=== PATIENT | female | born 1950 | race Caucasian/White ===

== ENCOUNTER 2018-11-20 19:36 | Inpatient (IN) ==
[2018-11-20 21:04] LABS: BASO# 0.03 X1000 (0.0-0.2); BASO% 0.1 % (0.0-0.8); EOS# 0.06 X1000 (0.0-0.7); EOS% 0.3 % (0.0-10.0); HEMOGLOBIN 13.3 g/dL (12.0-16.0); IMM GRAN# 0.08 X1000 (0.0-0.04); IMM GRAN% 0.4 % (0.0-0.5); LYMPH# 12.14 X1000 (1.2-3.4); LYMPH% 55.4 % (20.5-51.1); MCH 26.2 PG (27-31); MCHC 31.7 g/dL (33-37); MCV 82.7 FL (81-99); MONO# 1.01 X1000 (0.11-0.59); MONO% 4.6 % (1.7-9.3); NEUT# 8.59 X1000 (1.4-6.5); NEUT% 39.2 % (42.2-75.2); PLT 276 X1000 (130-400); RBC 5.08 XMIL (4.2-5.4); RDW 15.5 % (11.5-14.5); WBC 21.91 X1000 (4.8-10.8)
--- NOTE | 2018-11-20 21:37 | Diag Imaging Result Doc PS360 ---
EXAM: CHEST-PORTABLE INDICATION: cp TECHNIQUE: One view COMPARISON: 09/22/2016 FINDINGS: There is evidence of prior granulomatous disease, stable. The lungs are grossly clear. There is no discrete pleural fluid collection or pneumothorax. The cardiomediastinal silhouette and central vasculature are grossly unremarkable. IMPRESSION: No evidence of acute pathology by plain radiograph. Electronically signed by Moi Katz 11/20/2018 9:34 PM
[2018-11-20 21:48] LABS: AGAP 13; ALB/GLOB RATIO 1.2; ALBUMIN 4.1 g/dL (3.5-5.0); ALKALINE PHOSPHATASE 151 U/L (32-104); BUN 19 mg/dL (8-22); CALCIUM 8.7 mg/dL (8.8-10.2); CHLORIDE 99 mmol/L (98-107); COSMO 294; CREATININE 0.6 mg/dL (0.5-0.9); ESTIMATED GFR > 60; GOT 12 U/L (10-30); GPT 9 U/L (10-36); POTASSIUM 4.5 mmol/L (3.5-5.1); SODIUM 137 mmol/L (136-145); TCO2 25 mmol/L (25-35); TOTAL BILIRUBIN 0.25 mg/dL (0.20-1.00); TOTAL PROTEIN 7.5 g/dL (6.3-8.3)
[2018-11-20 21:49] LABS: GLUCOSE 414 mg/dL (70-104)
[2018-11-20] MEDS ORDERED: LOVENOX 1 MG/KG SUBQ ONE (21:58)
[2018-11-20] MEDS ORDERED: HUMULIN R SUBQ ONE (22:01)
--- NOTE | 2018-11-20 22:06 | PROVIDER DOCUMENTATION ---
This chart was entered by Mell Katz Scribe, acting as scribe for Mika Lyman MD. HPI-Chest Pain - General Chief Complaint: B/P Problems Stated Complaint: B/P FLUCTUATING, PULSE RACING, CHEST/NECK PAIN Time Seen by Provider: 11/20/18 19:56 Source: patient Allergies/Adverse Reactions: Patient Allergies Allergy/AdvReac Type Severity Reaction Status Date / Time No Known Allergies Allergy Verified 09/22/16 12:44 Home Medications: Home Medication List Medication Instructions Recorded Confirmed Last Taken Type Atenolol 50 mg PO QAM 02/20/15 09/22/16 09/22/16 08:00 History Furosemide [Lasix] 40 mg PO DAILY 02/20/15 09/22/16 09/22/16 08:00 History Insulin NPH Hum/Reg Insulin Hm 30 unit SQ QPM 02/20/15 09/22/16 09/21/16 20:00 History [Humulin 70-30 Vial] Insulin NPH Hum/Reg Insulin Hm 50 unit SQ QAM 02/20/15 09/22/16 09/22/16 08:30 History [Humulin 70-30 Vial] Tramadol [Ultram] 50 mg PO Q6H PRN PRN #15 tablet 03/18/15 09/22/16 Unknown Rx Aspirin 81 mg PO DAILY 07/10/15 09/22/16 09/22/16 08:00 History Omeprazole 20 mg PO DAILY 07/10/15 09/22/16 09/22/16 08:00 History Sennosides/Docusate Sodium [Stool 1 each PO DAILY 07/10/15 09/22/16 Unknown History Softener Tablet] Atorvastatin Calcium [Lipitor] 40 mg PO HS 09/22/16 09/22/16 09/21/16 20:00 History Clopidogrel [Plavix] 75 mg PO DAILY 09/22/16 09/22/16 09/22/16 08:00 History Cyclobenzaprine [Flexeril] 10 mg PO TID PRN #15 tablet 09/22/16 Unknown Rx - History of Present Illness-CP Nature of Presenting Problem: 67 yof presents to er w/co cp becoming more frequent and progressively worse. pt states pain is mid sternal and radiates into jaw. pt also has nausea and sweating associated with symptoms. pt takes plavix. pt has hx of coronary dx, had cath and 1 stent in 2015, colon cancer and had resection. pt currently has CLL. pt denies nvd, fever and headache. pt has many abd sx scars. Location: reports: substernal Chest Pain Radiation: reports: jaw Quality of Pain: reports: aching Severity in ED: mild Timing: still present Aspirin Treatment Today: unknown Review of Systems - Adult - REVIEW OF SYSTEMS - ADULT Constitutional: reports: no symptoms reported. denies: fever Eyes: reports: no symptoms reported Ears, Nose, Mouth & Throat: reports: no symptoms reported Cardiovascular: reports: see HPI, chest pain (substernal). denies: edema, heart murmur, orthopnea Respiratory: reports: no symptoms reported. denies: shortness of breath Gastrointestinal: reports: see HPI, nausea. denies: abdominal pain, diarrhea, vomiting Genitourinary: reports: no symptoms reported Musculoskeletal: reports: no symptoms reported Integumentary: reports: no symptoms reported Neurological: reports: no symptoms reported Psychiatric: reports: no symptoms reported Endocrine: reports: see HPI, excessive sweating Hematologic/Lymphatic: reports: no symptoms reported Allergic/Immunologic: reports: no symptoms reported All Other Systems: Reviewed and Negative Past History - Adult - PAST MEDICAL HISTORY-ADULT Review of Records: reports: Old Records Reviewed, Nursing Assessment Review, Medications Reviewed, Social history reviewed & non-contributory. Major Childhood Illnesses: reports: history unknown Cardiovascular: reports: hyperlipidemia Respiratory: reports: denies history Gastrointestinal: reports: cancer (hx colon cancer s/p resection surgery), other (gallstones ) Obstetrical/Gynecological: reports: denies history Genitourinary: reports: other (s/p hysterectomy) Musculoskeletal: reports: denies history Neurological: reports: denies history Psychiatric: reports: denies history Endocrine/Immune: reports: Diabetes (insulin dependent) Other Conditions: reports: other (leukemia- WBC ususally 30K per patient) - PRIOR SURGERIES/PROCEDURES Surgical/Procedure History: reports: colonoscopy, hysterectomy - PRIOR HOSPITALIZATIONS Prior Hospitalizations: reports: for similar symptoms - IMMUNIZATION STATUS Childhood Immunizations: See Nurse Assessment Flu Vaccine: See Nurse Assessment - FAMILY HISTORY Family History: reviewed, not pertinent - SOCIAL HISTORY Smoking: other (former smoker) Substance Use: none/never Alcohol Use Frequency: never Physical Exam-General - PHYSICAL EXAM-ADULT Initial Vital Signs Reviewed: Yes - CONSTITUTIONAL General Appearance: alert, mild distress - EYES Eyes: PERRL/EOMI, pink conjunctivae - HEAD, EARS, NOSE, MOUTH & THROAT HENMT: normocephalic/atraumatic, moist mucous membranes, normal ENT inspection - NECK Neck: non-tender, full range of motion, supple, normal inspection - RESPIRATORY Respiratory: chest non-tender, lungs clear, normal breath sounds - CARDIOVASCULAR Cardiovascular: normal peripheral pulses, no edema, no gallop, no JVD, no murmur , tachycardia. 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 II-XII nml as tested, grossly normal, no motor/sensory deficits - PSYCHIATRIC Psych/Mental Status: normal mood/affect, normal thought content, normal thought process, oriented x 3 Progress - PLAN OF CARE/RESULTS Progress/Plan/Lab Results: Vital Signs - 8 hr 11/20/18 19:42 11/20/18 19:59 11/20/18 20:01 Temperature 97.9 F Pulse Rate 105 H 89 94 H Respiratory Rate 15 21 20 Blood Pressure 157/79 150/66 O2 Sat by Pulse Oximetry 96 93 L 92 L 11/20/18 20:02 11/20/18 20:10 11/20/18 20:17 Temperature Pulse Rate 99 H 97 H 92 H Respiratory Rate 21 24 17 Blood Pressure 141/66 154/74 O2 Sat by Pulse Oximetry 94 L 92 L 93 L 11/20/18 20:20 11/20/18 20:30 11/20/18 20:32 Temperature Pulse Rate 93 H 101 H 94 H Respiratory Rate 16 20 19 Blood Pressure 165/84 O2 Sat by Pulse Oximetry 95 96 94 L 11/20/18 20:40 11/20/18 20:47 11/20/18 20:50 Temperature Pulse Rate 88 94 H 91 H Respiratory Rate 22 23 24 Blood Pressure 146/73 O2 Sat by Pulse Oximetry 92 L 90 L 91 L Laboratory Results - last 24 hr 11/20/18 11/20/18 11/20/18 20:49 20:49 20:49 WBC 21.91 H RBC 5.08 Hgb 13.3 Hct 42.0 MCV 82.7 MCH 26.2 L MCHC 31.7 L RDW Std Deviation 15.5 H Plt Count 276 MPV 10.0 Immature Gran % (Auto) 0.4 Neut % (Auto) 39.2 L Lymph % (Auto) 55.4 H Cecil % (Auto) 4.6 Eos % (Auto) 0.3 Baso % (Auto) 0.1 Immature Gran # (Auto) 0.08 H Neut # (Auto) 8.59 H Lymph # (Auto) 12.14 H Cecil # (Auto) 1.01 H Eos # (Auto) 0.06 Baso # (Auto) 0.03 Sodium 137 Potassium 4.5 Chloride 99 Carbon Dioxide 25 Anion Gap 13 BUN 19 Creatinine 0.6 Estimated GFR/1.73 m2 > 60 BUN/Creatinine Ratio 32 Glucose 414 H* Calculated Osmolality 294 Calcium 8.7 L Total Bilirubin 0.25 AST 12 ALT 9 L Alkaline Phosphatase 151 H Troponin T < 0.010 Total Protein 7.5 Albumin 4.1 Globulin 3.4 Albumin/Globulin Ratio 1.2 Orders Category Date Time Status CHEST-PORTABLE [RAD] Stat Exams 11/20/18 20:39 Completed CBC WITH ELECTRONIC DIFF [HEME] Stat Lab 11/20/18 20:49 Completed COMPREHENSIVE METABOLIC PANEL [CHEM] Stat Lab 11/20/18 20:49 Completed TROPONIN T Stat Lab 11/20/18 20:49 Completed Enoxaparin 1 mg/kg [Lovenox 1 mg/kg] Med 11/20/18 21:58 Discontinued 1 each SUBQ NOW ONE Insulin Human Regular [Humulin R] Med 11/20/18 22:01 Once 10 unit SUBQ NOW ONE Result Diagrams: 11/20/18 20:49 11/20/18 20:49 - EKG 1 Time of EKG reading by physician:: 20:31 EKG Read and Signed by:: Mika Lyman - XRAY 1 XRAY: Bilateral XRAY Study: Chest ( EXAM: CHEST-PORTABLE INDICATION: cp TECHNIQUE: One view COMPARISON: 09/22/2016 FINDINGS: There is evidence of prior granulomatous disease, stable. The lungs are grossly clear. There is no discrete pleural fluid collection or pneumothorax. The cardiomediastinal silhouette and central vasculature are grossly unremarkable. IMPRESSION: No evidence of acute pathology by plain radiograph. Electronically signed by Moi Katz 11/20/2018 9:34 PM) Impression: Abnormal Comparison with other Films: changes noted - CONSULTS/PCP/HOSPITALIST Notification #1 *Consult/PCP/Hospitalist*: Discussed with Dr Higginbotham Time Discussed: 22:03 Consult Disposition: other (admit to hospitalist) #2 Consult: Dr Rodriguez Time Discussed: :04 Consult Disposition: Admit Departure - Departure Date of Disposition Decision: 11/20/18 Time of Disposition Decision: :04 DIAGNOSIS: Acute coronary syndromes Disposition: ADMITTED INPATIENT 09 Certified Medical Emergency: Emergent Condition: Stable Referrals and Follow-Ups: Lotus Hernandez MD [Primary Care Provider] - - Critical Care Note This patient required my direct & personal management of CC.: Yes Total Time (mins): 30 Critical Care Statement: This patient required my direct personal management to treat or rule out processes, the absence of which, could potentiallly result in sudden, clinically significant life or limb threatening deterioration. Attestation - Physician/ MAHAD Attestation Patient care was provided by Advanced Practice Provider:: No The physician spent face to face time with patient:: Yes Advanced Practice Provider documentation review:: Supervising physician onsite and consulted in the evaluation and care of this patient. The physician did have a face to face encounter with the patient. This chart was documented by the indicated scribe, (Mell Katz Scribe) and accurately reflects the services I performed and decisions made by me, Mika Lyman MD, as attested by the provider's signature.
[2018-11-20] MEDS ORDERED: LOVENOX SUBQ ONE (22:15)
--- NOTE | 2018-11-20 23:02 | ED EKG INTERP ---
This chart was entered by Mell Katz Scribe, acting as scribe for Mika Lyman MD. EKG Interpretation - EKG Time of EKG reading by physician:: 19:54 EKG Read and Signed by:: Mika Lyman EKG Interpretation (*Must complete 3 of following elements*): Abnormal Rate: 97 (inferior infarct, age undetermined) Rhythm: NSR SC Interval: normal ST Wave: non-specific ST changes (t wave abnormality, consider lateral ischemia) Comments: cannot rule out anterior infarct, age undetermined. Attestation - Physician/ MAHAD Attestation The physician spent face to face time with patient:: Yes Advanced Practice Provider documentation review:: Supervising physician onsite and consulted in the evaluation and care of this patient. The physician did have a face to face encounter with the patient. This chart was documented by the indicated scribe, (Mell Katz Scribe) and accurately reflects the services I performed and decisions made by me, Mika Lyman MD, as attested by the provider's signature.
[2018-11-20] MEDS ORDERED: TYLENOL PO PRN (23:21)
[2018-11-20] MEDS ORDERED: ZOFRAN IV PRN (23:21)
[2018-11-20] MEDS ORDERED: NITROGLYCERIN SL PRN (23:25)
--- NOTE | 2018-11-21 00:20 | HISTORY AND PHYSICAL ---
PRIMARY CARE PHYSICIAN: Dr. Hernandez. CHIEF COMPLAINT: Chest pain. HISTORY OF PRESENTING ILLNESS: A 67-year-old female with a history of diabetes mellitus type 2, coronary artery disease, leukemia and colon cancer, who had presented to the emergency department with 1-day history of having chest pain. She described it as pressure-like with radiation to her neck. She states that she was short of breath. The patient was evaluated in the emergency department. Her case was discussed with Cardiology, who recommended that patient be admitted for further evaluation and management. At time of my examination, patient denied any headache, fever, chills, nausea, vomiting, diarrhea, hemoptysis, but complained of chest pain and shortness of breath. PAST MEDICAL HISTORY: Includes diabetes mellitus type 2, coronary artery disease, leukemia, dysphagia, colon cancer. PAST SURGICAL HISTORY: Coronary stent, colon resection, cholecystectomy, hysterectomy, bilateral arm surgery. ALLERGIES: No known drug allergies. CURRENT MEDICATIONS: Include aspirin 81 mg p.o. daily, atenolol 50 mg p.o. q.a.m., atorvastatin 40 mg p.o. at bedtime, Plavix 75 mg p.o. daily, Flexeril 10 mg p.o. t.i.d., Lasix 40 mg p.o. daily, Humulin 70/30 30 units in the p.m. and 50 units in the a.m., omeprazole 20 mg p.o. daily, tramadol 50 mg p.o. q.6 hours. SOCIAL HISTORY: She is a former smoker. She denies any history of alcohol or illicit drug use. FAMILY HISTORY: Positive for coronary artery disease in mother and father. REVIEW OF SYSTEMS: Fourteen point review of system as listed in HPI. Other systems negative. PHYSICAL EXAMINATION: GENERAL: Cooperative, friendly female. She is resting more comfortably now. VITAL SIGNS: Temperature 97.9 degrees, pulse 105, respiration 15, blood pressure 157/79. HEENT: Atraumatic, normocephalic. Extraocular movements intact. PERRLA. NECK: Supple. CHEST: Clear to auscultation. CARDIOVASCULAR: Regular rate and rhythm. ABDOMEN: Soft, positive bowel sounds. EXTREMITIES: No edema. NEUROLOGIC: She is awake, alert, oriented x3. GENITOURINARY: No bladder distention. SKIN: Warm. LABORATORIES AND STUDIES: WBCs 21.91, hemoglobin 13.3, hematocrit 42.0, platelets 276. Sodium 137, potassium 4.5, chloride 99, CO2 is 25, BUN 19, creatinine 0.6, glucose is 414. Troponin is 0.010. ASSESSMENT: A 67-year-old female with a history of diabetes mellitus type 2, coronary artery disease, leukemia and colon cancer, who had presented to the emergency department with a 1-day history of having chest pain. The patient was evaluated in the emergency department and due to her presenting symptoms we will place her for observation for further evaluation and management. 1. Chest pain. 2. Coronary artery disease. 3. Diabetes mellitus type 2 with hyperglycemia. 4. Leukemia. PLAN: 1. We will admit patient to medical floor with telemetry. 2. Continue cardiac workup. Check EKG, serial cardiac enzymes. Have patient continue on aspirin. We will use sublingual nitroglycerin and morphine p.r.n. chest pain. 3. We will consult Cardiology. 4. Monitor blood glucose and put patient on sliding scale insulin regimen. 5. Restart other home medications. 6. Put patient on DVT prophylaxis with SCD. 7. We will continue to follow, and reassess and make further recommendations based on patient's clinical course. cc: Yevgeniy Rodriguez MD
[2018-11-21 02:12] LABS: URINE SOURCE CLEAN CATCH
[2018-11-21 02:21] LABS: BILIRUBIN URINE NEGATIVE (NEGATIVE); BLOOD URINE NEGATIVE (NEGATIVE); COLOR YELLOW; GLUCOSE URINE >1000 mg/dL (NEGATIVE); KETONE URINE NEGATIVE (NEGATIVE); LEUKOCYTES URINE TRACE (NEGATIVE); NITRITE URINE NEGATIVE (NEGATIVE); PH URINE 6.5; PROTEIN URINE TRACE mg/dL (NEGATIVE); SP GRAVITY URINE 1.028; TURBIDITY URINE CLEAR (CLEAR); UROBILINOGEN URINE NORMAL (NORMAL)
[2018-11-21 02:22] LABS: UR EPITHELIAL CELLS <10 /HPF (<10); URINE BACTERIA NEGATIVE /HPF; URINE RBC <10 /HPF (<10); URINE WBC <10 /HPF (<10)
[2018-11-21] MEDS ORDERED: D50W SYRINGE IV PRN (05:43)
[2018-11-21] MEDS ORDERED: D50W SYRINGE IV ONE (05:43)
[2018-11-21] MEDS: PRILOSEC PO SCH ×2 (06:01→10:40)
[2018-11-21] MEDS: HUMULIN R SUBQ SCH ×3 (06:01→21:19)
--- NOTE | 2018-11-21 07:27 | EKG Report ---
Test Performed on : 11/21/2018 07:18:40 AM Test Reason : chest pain Blood Pressure : / mmHG Vent. Rate : 078 BPM Atrial Rate : 078 BPM P-R Int : 180 ms QRS Dur : 078 ms QT Int : 380 ms P-R-T Axes : 065 -19 090 degrees QTc Int : 433 ms Normal sinus rhythm. Nonspecific T wave abnormality Abnormal ECG When compared with ECG of 20-NOV-2018 19:54, (Unconfirmed) Criteria for Inferior infarct are no longer present Unconfirmed Result
[2018-11-21 08:22] LABS: HEMOGLOBIN A1C 8.7 % (4.8-6.0)
[2018-11-21 08:23] LABS: INR 0.97; PROTIME 13.6 Seconds (11.0-16.0)
[2018-11-21 08:24] LABS: PTT 35.4 Seconds (22.3-41.8)
--- NOTE | 2018-11-21 08:25 | EKG Report ---
Test Performed on : 11/20/2018 7:54:50 PM Test Reason : chest pain Blood Pressure : / mmHG Vent. Rate : 097 BPM Atrial Rate : 097 BPM P-R Int : 166 ms QRS Dur : 078 ms QT Int : 362 ms P-R-T Axes : 060 -07 096 degrees QTc Int : 459 ms Normal sinus rhythm. Inferior infarct , age undetermined Cannot rule out Anterior infarct (cited on or before 05-MAR-2015) T wave abnormality, consider lateral ischemia Abnormal ECG When compared with ECG of 12-JUL-2015 10:15, Vent. rate has increased BY 37 BPM T wave inversion now evident in Anterolateral leads Unconfirmed Result
[2018-11-21 08:26] LABS: D-DIMER < 0.27 ug/mLFEU (0.0-0.52)
[2018-11-21 08:41] LABS: FREE T4 1.21 ng/dL (0.93-1.70); TSH 2.04 uIUmL (0.27-4.20)
[2018-11-21] MEDS ORDERED: ASPIRIN PO SCH ×2 (09:00)
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
[2018-11-21] MEDS: PLAVIX PO SCH (10:37)
[2018-11-21] MEDS: RANEXA PO SCH ×2 (10:37→21:18)
[2018-11-21] MEDS: VITAMIN D PO SCH (10:37)
[2018-11-21] MEDS: AMARYL PO SCH ×2 (10:37→21:19)
[2018-11-21] MEDS: GLUCOPHAGE XR PO SCH ×2 (10:37→21:18)
[2018-11-21] MEDS: FERROUS SULFATE PO SCH (10:37)
[2018-11-21] MEDS: ALTACE PO SCH ×2 (10:37→21:18)
[2018-11-21] MEDS: MIRALAX PO SCH ×2 (10:39→21:18)
[2018-11-21] MEDS: NON-FORMULARY MED (Dapagliflozin Propanediol [Farxiga] 10 MG) PO SCH (10:39)
[2018-11-21] MEDS: ASPIRIN PO SCH (10:39)
[2018-11-21] MEDS: NORVASC PO SCH (10:39)
[2018-11-21] MEDS: ZOLOFT PO SCH (10:40)
--- NOTE | 2018-11-21 13:36 | PROGRESS NOTE ---
DATE: 11/21/2018 INTERVAL HISTORY: The patient had chest pain, seems to be resolved at this point. Denying dyspnea, diaphoresis, fever, chills. No new complaints. No acute events overnight. REVIEW OF SYSTEMS: A 12-point review of systems negative except as per interval history. LABORATORY DATA: PT, INR within normal. D-dimer negative. Hemoglobin A1c 8.7. Troponin negative x3. CRP 9.6. BNP 803, LDL 68, HDL 35, TSH 2.0, free T4 1.2. PHYSICAL EXAMINATION: Vital Signs: T-max 98.4, pulse 86, respirations 17, blood pressure 129/63, O2 saturation 99 L by nasal cannula. General: No acute distress. Vitals as above. HEENT: Normocephalic, atraumatic. Moist mucous membranes. No cervical adenopathy. Cardiovascular: Regular rate and rhythm. No murmurs noted. Pulmonary: Clear to auscultation bilaterally. Abdomen: Soft, nontender, nondistended. Bowel sounds positive. Extremities: Peripheral pulses intact. No clubbing, cyanosis, or edema. Neurologic: Cranial nerves grossly intact. No focal deficits identified. Psychiatric: Normal mood and affect. Awake, alert and oriented x3. Skin: No new rashes or lesions identified. ASSESSMENT AND PLAN: 1. Chest pain. The patient with significant cardiac history, but EKG with no significant acute ST changes and troponin negative x3. Does not appear to be having an myocardial infarction. Cardiology was consulted and made some medication adjustments. Waiting to see how she does with those prior to deciding if the patient may or may not need a catheterization to assess for unstable angina. 2. Coronary artery disease. Previous stent to distal right coronary with total occlusion of left anterior descending artery. Continue aspirin. 3. Diabetes mellitus type 2. The patient with marked hyperglycemia on admission. Then the patient became borderline hypoglycemic. Somewhat improved now. Discussed the patient's home regimen with her. She is supposed to take 60 units of her Basaglar at home, but depending on her morning sugar, may take anywhere from 40 to 60. She is also occasionally taking extra doses in the evening. Discussed with the patient the importance of compliance with her diabetes medications and communication with her PCP if she is experiencing low glucoses. 4. History of leukemia. Chronic leukocytosis. Based on previous records, the patient's white count is similar to what it has been as far back as 2015. Blood counts and platelets okay. We will monitor. 5. Hypertension, reasonable control. Currently on Norvasc, metoprolol, ramipril. 6. Hyperlipidemia. Continue statin. 7. Deep vein thrombosis prophylaxis. Umberto.
[2018-11-21] MEDS: LOPRESSOR PO SCH ×2 (14:15→21:21)
[2018-11-21] MEDS: LIPITOR PO SCH (21:18)
[2018-11-22] MEDS: LOPRESSOR PO SCH ×3 (05:29→21:29)
[2018-11-22] MEDS: HUMULIN R SUBQ SCH ×5 (06:09→21:29)
[2018-11-22] MEDS: PRILOSEC PO SCH ×2 (06:10→08:25)
[2018-11-22] MEDS: MIRALAX PO SCH ×2 (08:21→21:29)
[2018-11-22] MEDS: RANEXA PO SCH ×2 (08:22→21:29)
[2018-11-22] MEDS: ASPIRIN PO SCH (08:22)
[2018-11-22] MEDS: NORVASC PO SCH (08:22)
[2018-11-22] MEDS: AMARYL PO SCH ×2 (08:22→21:29)
[2018-11-22] MEDS: ZOLOFT PO SCH (08:22)
[2018-11-22] MEDS: PLAVIX PO SCH (08:22)
[2018-11-22] MEDS: VITAMIN D PO SCH (08:22)
[2018-11-22] MEDS: GLUCOPHAGE XR PO SCH ×2 (08:23→21:30)
[2018-11-22] MEDS: LOVENOX SUBQ SCH (08:23)
[2018-11-22] MEDS: ALTACE PO SCH ×2 (08:23→21:29)
[2018-11-22] MEDS: FERROUS SULFATE PO SCH (08:23)
[2018-11-22] MEDS: NON-FORMULARY MED (Dapagliflozin Propanediol [Farxiga] 10 MG) PO SCH (08:24)
--- NOTE | 2018-11-22 08:50 | CARDIOLOGY PROGRESS NOTE ---
DATE: 11/22/2018 CHIEF COMPLAINT: Chest pain. SUBJECTIVE: Mrs. Rhodes is feeling better today. She is not having anymore chest pain. She had a total of 4 troponin levels checked, all of them are normal. Her LDL cholesterol is 68, HDL is 35, triglycerides 202, total cholesterol 127. That is quite good. ProBNP level was minimally elevated at 803, upper normal is 353. OBJECTIVE: Vital signs: Blood pressure is 125/54, temperature 97.9, pulse 62, respirations 18. General: She is awake, alert, oriented, no distress. HEENT: Unremarkable. Chest: Clear to auscultation and percussion. Heart: Sounds regular and rhythm. No gallop or murmur. Abdomen: Nontender. Extremities: Show edema. Neurologic exam: Follows commands. Moves all 4 extremities. Skin: No rash. Her blood sugar is better controlled. IMPRESSION: 1. A patient who presented with chest pain suspected to represent unstable angina pectoris. 2. Severe coronary heart disease. Previous bypass. 3. History of hypertension. 4. Diabetes mellitus type 2. 5. History of impaired hearing. RECOMMENDATION: 1. At this time, the patient appears to be stable on current regimen that includes Ranexa 500 twice a day, aspirin 81 daily, atorvastatin 40 at bedtime, amlodipine 2.5 daily, Ramipril 5 twice a day. 2. At this point in time, the patient may go home to follow up with us at the office in about 2 weeks from now. If pain recurs, then we will recommend heart catheterization. cc: Zeus Alonzo MD
--- NOTE | 2018-11-22 16:10 | PROGRESS NOTE ---
DATE: 11/22/2018 SUBJECTIVE: Patient resting comfortably. OBJECTIVE: Vital signs: Temperature 97.7 degrees, pulse is 65, respirations 20, blood pressure is 97/61, oxygen saturation is 97%. HEENT: Atraumatic, normocephalic. Cardiovascular System: S1, S2. Respiratory system has evidence of good air entry bilaterally. Abdomen is soft, nontender. No masses felt. Extremities: No evidence of edema. Central nervous system: No obvious focal deficit noted. DIAGNOSTIC STUDIES: WBC 21.91, hematocrit is 42.0, with a platelet count of 279,000. INR is 0.97. EKG shows normal sinus rhythm with nonspecific T-wave abnormalities. ASSESSMENT AND PLAN: 1. Atypical chest pain. The patient is currently asymptomatic. Note Cardiology evaluation. We will get a CTA of the chest. 2. History of coronary artery disease. Continue aspirin, statin, as well as Ranexa. 3. Diabetes mellitus. Continue blood sugar monitoring as well as sliding scale insulin. 4. Hypertension. Continue current antihypertensive medications. 5. Hyperlipidemia. Continue statin. 6. History of leukemia. 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 cc: Fred Cuellar MD
--- NOTE | 2018-11-22 20:56 | Diag Imaging Result Doc PS360 ---
EXAM: CT ANGIOGRM PULMONARY ARTERIES INDICATION: chest pain TECHNIQUE: This exam was performed using automated exposure control, adjustment of mA or kV according to patient size, and/or use of iterative reconstruction technique. Thin section axial images and 3-D MIPS were obtained. COMPARISON: None. FINDINGS: There is no evidence of pulmonary embolism. There is patchy mild to moderate aortic atherosclerotic calcification. There is no evidence of aortic aneurysm or dissection. There is no cardiomegaly. There are calcified left hilar lymph nodes indicating prior granulomatous disease. There is a calcified granuloma in the left upper lobe. There is minimal scarring versus atelectasis in the lingula. The lungs are clear, otherwise. There is no pleural fluid collection and no pneumothorax. Limited views of the upper abdomen show a very small hiatal hernia. IMPRESSION: No evidence of pulmonary embolism or other definite acute chest pathology. Electronically signed by Moi Katz 11/22/2018 8:54 PM
[2018-11-22] MEDS: LIPITOR PO SCH (21:29)
[2018-11-23] MEDS: LOPRESSOR PO SCH ×2 (06:33→13:16)
[2018-11-23] MEDS: HUMULIN R SUBQ SCH ×2 (06:35→11:38)
[2018-11-23 06:56] LABS: BASO# 0.02 X1000 (0.0-0.2); BASO% 0.1 % (0.0-0.8); EOS# 0.03 X1000 (0.0-0.7); EOS% 0.1 % (0.0-10.0); HEMATOCRIT 46.2 % (37.0-47.0); HEMOGLOBIN 14.4 g/dL (12.0-16.0); IMM GRAN# 0.09 X1000 (0.0-0.04); IMM GRAN% 0.4 % (0.0-0.5); LYMPH# 10.74 X1000 (1.2-3.4); LYMPH% 50.3 % (20.5-51.1); MCH 25.9 PG (27-31); MCHC 31.2 g/dL (33-37); MCV 83.1 FL (81-99); MONO% 4.7 % (1.7-9.3); NEUT# 9.47 X1000 (1.4-6.5); NEUT% 44.4 % (42.2-75.2); PLT 290 X1000 (130-400); RBC 5.56 XMIL (4.2-5.4); RDW 15.8 % (11.5-14.5); WBC 21.35 X1000 (4.8-10.8)
[2018-11-23] MEDS ORDERED: PRILOSEC PO SCH (07:00)
[2018-11-23 07:13] LABS: LYMPHS 40 % (21-51); SEGS 34 % (42-75)
[2018-11-23 07:28] LABS: AGAP 13; ALKALINE PHOSPHATASE 131 U/L (32-104); BUN 25 mg/dL (8-22); CALCIUM 9.2 mg/dL (8.8-10.2); CHLORIDE 97 mmol/L (98-107); COSMO 279; CREATININE 0.9 mg/dL (0.5-0.9); ESTIMATED GFR > 60; GLUCOSE 155 mg/dL (70-104); GOT 15 U/L (10-30); GPT 10 U/L (10-36); POTASSIUM 4.6 mmol/L (3.5-5.1); SODIUM 136 mmol/L (136-145); TCO2 26 mmol/L (25-35); TOTAL BILIRUBIN 0.48 mg/dL (0.20-1.00); TOTAL PROTEIN 8.2 g/dL (6.3-8.3)
[2018-11-23] MEDS: PLAVIX PO SCH (08:59)
[2018-11-23] MEDS: GLUCOPHAGE XR PO SCH (08:59)
[2018-11-23] MEDS: ASPIRIN PO SCH (08:59)
[2018-11-23] MEDS: ALTACE PO SCH (09:00)
[2018-11-23] MEDS: VITAMIN D PO SCH (09:01)
[2018-11-23] MEDS: NON-FORMULARY MED (Dapagliflozin Propanediol [Farxiga] 10 MG) PO SCH (09:01)
[2018-11-23] MEDS: AMARYL PO SCH (09:02)
[2018-11-23] MEDS: RANEXA PO SCH (09:02)
[2018-11-23] MEDS: FERROUS SULFATE PO SCH (09:02)
[2018-11-23] MEDS: LOVENOX SUBQ SCH (09:03)
[2018-11-23] MEDS: NORVASC PO SCH (09:03)
[2018-11-23] MEDS: ZOLOFT PO SCH (09:03)
[2018-11-23] MEDS: MIRALAX PO SCH (09:08)
--- NOTE | 2018-11-23 11:45 | CARDIOLOGY PROGRESS NOTE ---
DATE: 11/23/2018 CHIEF COMPLAINT: Chest pain. SUBJECTIVE: Mrs. Rhodes is up and about, anxious about going home right now. She feels fine. No chest pain. No shortness of breath. OBJECTIVE: Vital signs: Blood pressure is 122/54, temperature 98.1, pulse 74, respirations 18. General: She is awake, alert, no distress. HEENT: Unremarkable. Chest: Clear to auscultation and percussion. Heart: Sounds regular and rhythmic. No gallop or murmur. Abdomen: Nontender. Extremities: Show edema. Neurologic exam: Normal. Gait is normal. Cranial nerves normal. She is hard of hearing. BLOOD WORK: White cell count 21,350. This has been that for a long time. Sodium 133, potassium 4.6, BUN 25, creatinine 0.9. IMPRESSION: 1. A patient with chest pain, angina pectoris, initially unstable, now has stabilized. She had ruled out for myocardial infarction. EKGs remain stable. 2. Leukocytosis. This is due to chronic lymphocytic leukemia, which is a known condition. CT of the chest done yesterday shows no evidence of pulmonary embolism and no infiltrates. 3. Severe coronary heart disease. Previous stent, previous occlusion of left anterior descending. 4. History of diabetes mellitus and hypertension. RECOMMENDATION: At this point in time, the patient is clinically stable and she may go home. I will reevaluate her at my office in 2-3 weeks. At this time, she does not need emergent heart catheterization. She is feeling fine and she can follow up also with Dr. Nelson as an outpatient. Her CLL is not any different than what it has been. cc: eZus Alonzo MD [facility]
[2018-11-23 12:01] VITALS: BP 118/47
--- NOTE | 2018-11-23 14:31 | DISCHARGE SUMMARY ---
ADMISSION DATE: 11/22/2018 DISCHARGE DATE: 11/23/2018 PRINCIPAL DIAGNOSIS: Atypical chest pain. SECONDARY DIAGNOSES: 1. Coronary artery disease. 2. Diabetes mellitus. 3. Hypertension. 4. Hyperlipidemia. 5. History of leukemia. DISCHARGE MEDICATIONS: Include the followin. Ranexa 500 mg p.o. twice a day. 2. Atenolol 50 mg p.o. daily. 3. Omeprazole 40 mg p.o. daily. 4. Aspirin 81 mg p.o. daily. 5. Plavix 75 mg p.o. daily. 6. Atorvastatin 40 mg p.o. daily. 7. Amlodipine 2.5 mg p.o. daily. 8. Farxiga 10 mg p.o. daily. 9. Lasix 40 mg daily. 10. Glimepiride 2 mg p.o. twice a day. 11. Lisinopril 2.5 mg p.o. daily. 12. Metformin 1000 mg p.o. twice a day. 13. Sertraline 50 mg p.o. daily. 14. Vitamin D 1000 units p.o. daily. 15. Ferrous sulfate 325 p.o. daily. 16. Basaglar 16 units subcutaneous in the morning. 17. MiraLAX 17 g twice a day. CONSULTATIONS DONE DURING THIS HOSPITAL STAY: Dr. Zeus Alonzo, Cardiology. SPECIAL PROCEDURES DONE DURING THIS HOSPITAL STAY: CTA of the chest done on 11/22/2018. No evidence of PE. HOSPITAL COURSE: Ms Christa Rhodes is a 67-year-old female. She has a history of diabetes mellitus type 2, coronary artery disease, leukemia, colon cancer, presents to the emergency department because of 1-day history of chest pain. She was subsequently admitted to the hospital for observation. Acute [place] was ruled out with negative cardiac enzymes. The patient was seen by the Cardiology team and no major intervention recommended. However, Ranexa was added to patient's treatment protocol. The patient will follow up with Cardiology in the outpatient. She did have a CTA of the chest which did not reveal any evidence of PE. At this time, she is doing well, she is stable. She can now be discharged home. PHYSICAL EXAMINATION: [*] Vital signs: Temperature 98 degrees, pulse 69, respirations 18, blood pressure [*], oxygenation is 97%. HEENT: Atraumatic, normocephalic. Cardiovascular: S1, S2. Respiratory: Has evidence of good air entry bilaterally. Abdomen: Soft, nontender. No masses felt. Central nervous system: No obvious focal deficit. LABORATORY DATA: WBC is 21.35, hematocrit 46.2, with a platelet count of 290,000. Sodium is 136, potassium 4.6, chloride is 97, bicarb 26, BUN 25, creatinine 0.9. PLAN: Discharge home today. 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 Also follow up with oncologist for her leukemia, and also her primary care physician. cc: Fred Cuellar MD
== END 2018-11-23 13:38 | disposition home or self-care (01) | DRG 303 ==
LOC: ED 19:36 → 3N 23:39 → SUATTDRO 23:39 → INTOOBSV 23:39
PROVIDERS: ATTEND Internal Medicine
CPT/HCPCS: 71010; 71045; 71275; 80053; 80061; 81001; 82550; 82728; 82948; 83036; 83615; 83721; 83880; 84439; 84443; 84484; 84550; 85025; 85379; 85610; 85651; 85730; 86140; 87088; 93005; 93010; 94761; 96372; 99285; 99291; A9270; J1650; Q9967; XXXXX